=== PATIENT | male | born 1995 | race Caucasian/White ===

== ENCOUNTER 2020-11-14 06:30 | Observation (INO) | payer OTHER, SELFPAY ==
--- NOTE | ~2020-11-14 | XR_ITS ---
EXAMINATION: XR abdomen obstructive series DATE: 11/15/2020 08:55 INDICATION: Small bowel obstruction TECHNIQUE: Upright and supine views of the abdomen were obtained. COMPARISON: None. FINDINGS: No free intraperitoneal gas is identified. The nasogastric tube is in the stomach. There ar e mildly dilated loops of small bowel in the midabdomen. Gas and stool are present in the colon. The visualized lung bases are clear. The osseous structures are unremarkable. IMPRESSION: 1. Mildly dilated small bowel in the midabdomen. Reviewed, dictated and finalized at location A. SORTER
--- NOTE | ~2020-11-14 | NM_ITS ---
EXAMINATION: NM Meckel's DATE: 11/14/2020 15:32 INDICATION: Small bowel obstruction with small bowel diverticulum suspicious for Meckel's diverticulu m. TECHNIQUE: 14.8 mCi Tc 99m pertechnetate administered intravenously. Scintigraphic images of the abd omen were 1 minute intervals through 1 hour with additional delayed 1 hour, 1 hour and 15 minute and 17 hour images. FINDINGS: There is focus of increased activity in the right upper quadrant. This is located in the region of th e previously noted diverticulum which is also alongside the lower pole of the right kidney. There davis s appear to be some excreted activity at the kidneys and more prominently in the bladder. The activit y however is asymmetric, significantly greater on the right which is more prominent on the 1 hour del ayed images. There is no evident asymmetric hydronephrosis on the prior CT images performed earlier i n the day at outside to suggest hydronephrosis in etiology for the asymmetry. IMPRESSION: 1. Focus of increased uptake in the right upper quadrant suspicious for ectopic gastric mucosa the s ite of the previous noted small bowel likely Meckel's diverticulum. Specificity is decreased by the l ocation along side the kidney and could not exclude asymmetric renal uptake although there are no fin dings on the prior CT to account for the asymmetry. Reviewed, dictated and finalized at location A. ATION PROGRAM MANAGER IMPRESSION: 1. Focus of increased uptake in the right upper quadrant suspicious for ectopi c gastric mucosa the site of the previous noted small bowel likely Meckel's div erticulum. Specificity is decreased by the location along side the kidney and c ould not exclude asymmetric renal uptake although there are no findings on the prior CT to account for the asymmetry.
--- NOTE | ~2020-11-14 | XR_ITS ---
EXAMINATION: XR abdomen NG/feed tube rechec INDICATION: Nasogastric tube placement TECHNIQUE: Portable AP KUB-NG at 1903 hours COMPARISON: 0507 hours FINDINGS: The nasogastric tube is in the stomach. The lung bases are clear. No free intraperitoneal g as is identified. IMPRESSION: 1. Nasogastric tube in the stomach. Reviewed, dictated and finalized at location A. D CAPTAIN
--- NOTE | 2020-11-14 06:30 | ADMGEN ---
This patient, Romie Shay, was admitted to Medical Room 348-01. Patient/family oriented to hospital policies and general routines including ID bracelet, bed and alarms, visiting hours, pain management, procedures, bathroom and other care routines, personal items, smoking policy, room service/diet, and visiting hours. Information on how to activate the Rapid Response Team has been discussed. Patient/Family are encouraged to report perceived risks to care and to ask questions if they do not understand what they are told or what they should do.
[2020-11-14 06:48] VITALS: BMI 29.0
[2020-11-14 06:51] VITALS: BP 143/79; PULSE 81; RESP 17; TEMP 36.2; O2SAT 97
[2020-11-14] MEDS: SODIUM CHLORIDE 0.9% IV 1,000 ML 125 ML IV CONT ×2 (08:02→17:37)
[2020-11-14] MEDS: BENZOCAINE/MENTHOL (*BKC) 18 EA LOZENGE 1 LOZENGE PO (08:02)
[2020-11-14 08:45] LABS: Estimated CRCL calculation 121 ml/min; Estimated Glomerular Filt Rate > 60
[2020-11-14 10:00] VITALS: BP 133/81; PULSE 66; RESP 16; TEMP 36.1; O2SAT 99
[2020-11-14] MEDS: PHENOL/SOD PHENO SPRAY CHERRY (*BKC) 1 SPRAY MUCOUS MEM (12:39)
--- NOTE | 2020-11-14 13:47 | PM.IMHP ---
H&P: HPI History of Present Illness Date/Time: 11/14/20 09:47 Chief Complaint: Lower abdominal pain Narrative: Romie Shay is a 25 year old male who presented to the ER at [facility] in [place] yesterday with complaints of lower abdominal pain. He reports having a sudden onset of, initially, mild lower abdominal pain yesterday evening around 6:00 pm after eating dinner. The patient continued to worsen and had no alleviating factors, therefore he presented to the ER. He denies any nausea, vomiting, bloating, fever, or chills prior to ER presentation. He does report one episode of vomiting in the ER at [place], that he felt was related to the severe pain. CT scan of the abdomen and pelvis in the ER showed a small bowel obstruction with a focal diverticular outpouching of dilated small bowel just proximal to the transition point, measuring 2.2 x 2 cm. Findings highly suspicious for Meckel's diverticulum and may represent etiology of the small bowel obstruction. Labs revealed a white blood cell count of 15,900, hemoglobin 16.7, hematocrit 48.1, platelets 215,000, lactic acid 1.1, alk phos 142, AST 80, ALT 180, glucose 111, and other labs were unremarkable. An NG tube was placed and our service was consulted by that ER provider for the CT findings mentioned above. The patient has now been directly admitted to [facility] to our service. He is being seen on the medical floor. He reportedly had about 250 cc out of his NG tube in the ER. The patient denies any flatus and his last bowel movement was 2 days ago, but normal for him. Denies any history of a small bowel obstruction or known Meckel's diverticulum. No history of abdominal surgeries. Reports his abdominal pain has improved significantly and is now barely evident at rest. He is still slightly tender but states that this has improved significantly as well. He also complains of pain in his throat from the NG tube, but no other complaints at this time. Review of Systems Constitutional: Constitutional: Reports as per HPI, Denies chills, Denies fatigue, Denies fever(s) and Denies headache(s) Eyes: Eyes: Reports no additional eye complaints, Denies change in vision, Denies diplopia and Denies loss of vision ENT: Reports system reviewed and no additional complaints, except as documented, Reports Normal hearing present, Denies dizziness, Denies headache(s) and Reports other (throat pain from NG) Cardiovascular: Cardiovascular: Reports no additional cardiovascular complaints, Denies chest pain, Denies syncope, Denies leg edema, Denies lightheadedness, Denies radiating jaw, neck or arm pain and Denies dyspnea Respiratory: Respiratory: Reports no additional respiratory complaints, Denies cough, Denies dyspnea and Denies wheezing Gastrointestinal: Gastrointestinal: Reports as per HPI, Reports no additional gastrointestinal complaints, Reports abdominal pain (mid lower abd pain), Denies melena, Denies bloating, Denies hematochezia, Denies change in bowel habits, Denies dysphagia, Denies diarrhea, Denies nausea, Reports vomiting (x 1) and Denies hematemesis Genitourinary: Genitourinary: Reports no additional male genitourinary complaints, Denies hematuria and Denies dysuria Musculoskeletal: Musculoskeletal: Reports no additional musculoskeletal complaints, Denies deformity, Denies joint swelling, Denies radiating pain into limb and Denies tingling Integumentary/Breasts: Skin/Breast: Denies pruritus, Denies lesions, Denies erythema, Denies wounds and Denies jaundice Neurologic: Reports system reviewed and no additional complaints, except as documented, Reports Normal hearing present, Denies dizziness, Denies syncope, Denies headache(s), Denies loss of vision, Denies tingling and Denies tremor(s) Psychiatric: Psychiatric: Denies anxiety and Denies depression Endocrine: Endocrine: Denies fatigue PMFSH Past Medical History Medical History No pe
[2020-11-14 16:00] VITALS: BP 135/80; PULSE 62; RESP 16; TEMP 36.4; O2SAT 99
[2020-11-14] MEDS: ACETAMINOPHEN 325 MG TABLET 650 MG PO (17:37)
[2020-11-14 18:00] VITALS: BP 136/71; PULSE 68; RESP 16; TEMP 36.2; O2SAT 97
[2020-11-14 20:00] VITALS: BP 143/88; PULSE 68; RESP 20; TEMP 36.3; O2SAT 98
[2020-11-14] MEDS: MORPHINE SULFATE (*CRX) 2 MG/ML INJ IV PUSH (20:37)
[2020-11-15] VITALS: BP 138/82; PULSE 75; RESP 18; TEMP 36.6; O2SAT 99
[2020-11-15] MEDS: SODIUM CHLORIDE 0.9% IV 1,000 ML 125 ML IV CONT ×2 (02:07→15:25)
[2020-11-15 06:10] LABS: Basophils Percent Auto 0.3 % (0.2-1.2); Eosinophils Absolute Auto 0.2 K/mm3 (0-0.3); Eosinophils Percent Auto 1.6 % (0-4.4); Hematocrit 43.7 % (42.0-52.0); Hemoglobin 14.6 g/dL (14.0-18.0); Immature Granulocyte Absolute 0.03 K/mm3 (0.00-0.031); Immature Granulocyte Percent A 0.3 % (0-0.5); Lymphocytes Percent Auto 20.7 % (18.3-44.2); Mean Corpuscular HGB Conc 33.4 g/dl (32-36); Mean Corpuscular Hemoglobin 30.2 pg (26-34); Mean Corpuscular Volume 90.3 fl (80-100); Monocytes Absolute Auto 1.1 K/mm3 (0.1-0.6); Monocytes Percent Auto 11.2 % (2.6-8.5); Neutrophils Absolute Auto 6.7 K/mm3 (1.3-6.7); Neutrophils Percent Auto 65.9 % (45.5-73.1); Platelet Count Result 173 k/mm3 (150-375); Red Blood Count 4.84 M/mm3 (4.6-6.20); Red Cell Distribution Width 11.9 % (11.5-14.5); White Blood Count 10.2 K/mm3 (4.5-10.0)
[2020-11-15 06:24] LABS: Alanine Aminotransferase 123 U/L (4-50); Albumin Level 4.2 g/dL (3.5-5.1); Alkaline Phosphatase 108 U/L (38-126); Anion Gap 7 mmol/L (8-16); Aspartate Amino Transferase 60 U/L (17-59); Bilirubin,Total 1.4 mg/dL (0.2-1.3); Blood Urea Nitrogen 9 mg/dL (9-20); Calcium 9.3 mg/dL (8.4-10.2); Carbon Dioxide 31 mmol/L (22-30); Chloride 99 mmol/L (98-107); Estimated CRCL calculation 100 ml/min; Estimated Glomerular Filt Rate > 60; Glucose 108 mg/dL (75-110); Magnesium 2.3 mg/dL (1.6-2.3); Potassium 4.1 mmol/L (3.4-5.0); Sodium 137 mmol/L (137-145)
[2020-11-15 06:40] VITALS: BP 140/82; PULSE 78; RESP 18; TEMP 36.4; O2SAT 99
[2020-11-15 08:00] VITALS: BP 137/84; PULSE 77; RESP 16; TEMP 36; O2SAT 98
--- NOTE | 2020-11-15 11:47 | PM.PNGS ---
Progress Note: A&P Assessment and Plan (1) Small bowel obstruction: Code(s): K56.609 - Unspecified intestinal obstruction, unspecified as to partial versus complete obstruction Status: Acute Assessment and Plan: SBO thought to possibly be secondary to Meckel's diverticulitis. Nuc med Meckel's scan done yesterday and showed focus of increased uptake in the right upper quadrant suspicious for ectopic gastric mucosa the site of the previous noted small bowel likely Meckel's diverticulum. Specificity is decreased by the location along side the kidney and could not exclude asymmetric renal uptake although there are no findings on the prior CT to account for the asymmetry. After speaking with the Radiologist, they are planning to get imaging again today (when the dye from the kidneys should have cleared) and see if there is still uptake in this area, more likely then from a Meckel's diverticulum. If this appears to be a Meckel's diverticulum, then we will further discuss proceeding with surgical resection. If this does not show uptake in that area, then we will treat this more conservatively as a diverticulitis with antibiotics, and slowly start advancing his diet with resolution of the bowel obstruction. Will await results to decipher further plan. (2) Meckel's diverticulum: Code(s): Q43.0 - Meckel's diverticulum (displaced) (hypertrophic) Status: Acute Assessment and Plan: Possible Meckel's diverticulitis. See plan above. (3) Leukocytosis: Code(s): D72.829 - Elevated white blood cell count, unspecified Status: Acute Assessment and Plan: WBC count down to 10,000 today. Thought to be related to Meckel's diverticulitis, continue IV abx and monitor labs. Additional Plan Discussed the patient's plan of care with Dr. Askew. Subjective Subjective Date/Time Seen: 11/15/20 09:47 Patient reports: no new complaints, flatus and no bowel movement Interval history: Patient seen this morning with Dr. Askew. He denies any abdominal pain, nausea, or significant bloating. Reports flatus, but no BM. Still complains of the discomfort of the NG tube. NO other complaints at this time. He did have an incident where the NG was slightly removed overnight. The nurse advanced it back to the area where it was previously marked by his naris and repeated an x-ray of the abdomen. This is now in good place. He has since had a little over 1.5 L out of the NG tube since that NG was re-advanced. Review of Systems Review of Systems: All systems reviewed & are unremarkable except as noted in HPI and below Constitutional: Constitutional: Reports as per HPI, Denies chills and Denies fever(s) Exam Const: General: no acute distress, alert and awake Orientation/consciousness: patient oriented x3 Resp: Effort & Inspection: normal respiratory effort Auscultation: clear to auscultation bilaterally Cardio: Rate: regular rate Rhythm: regular rhythm GI: Inspection: normal to inspection and non-distended GI Palp: Yes Soft to palpation, No Tenderness to palpation present (GI), No Guarding due to palpation present (GI) and No Rebound tenderness present Auscultation: normal bowel sounds Skin: General skin exam: normal color Neuro: General: moves all extremities and no focal motor deficits Cranial nerves: Yes Equal, round and reactive pupils present Extrem: General: normal to inspection and no clubbing, cyanosis or edema Psych: Appearance: grossly normal Mental Status: mental status grossly normal Speech and movement: Normal speech and movement present Insight: Good insight present (Psych) Judgement: Good judgement present (Psych) Objective Data Vital Signs Vital Signs: Vital Signs - 24 hr 11/14/20 16:00 11/14/20 18:00 11/14/20 20:00 Temperature 97.5 F L 97.1 F L 97.3 F L Pulse Rate 62 68 68 Respiratory Rate 16 16 20 Blood Pressure 135/80 136/71 143/88 H Pulse Oximetry 99 97 98 11/15/20 00:00 11/15/20 06:4
[2020-11-15 12:00] VITALS: BP 138/86; PULSE 86; RESP 18; TEMP 36.3; O2SAT 98
[2020-11-15] MEDS: PHENOL/SOD PHENO SPRAY CHERRY (*BKC) 1 SPRAY MUCOUS MEM (12:36)
[2020-11-15 16:00] VITALS: BP 141/82; PULSE 98; RESP 16; TEMP 36.6; O2SAT 99
== END 2020-11-15 18:40 | disposition home or self-care (01) ==
PROVIDERS: Admitting Provider Surgery; Visit Provider Surgery
DX: K56.609 Unspecified intestinal obstruction, unspecified as to partial versus complete obstruction (principal); D72.829 Elevated white blood cell count, unspecified
CPT/HCPCS: 36415; 74018; 74019; 78290; 80053; 82565; 83605; 83735; 85025; 96361; 96365; 96375; A9270; A9512; G0378; G0379; J2270; J2543; J7030

== ENCOUNTER 2021-11-27 13:14 | Outpatient (CLI) | payer BC, SELFPAY ==
[2021-11-27 11:47] LABS: Basophils Percent Auto 0.5 % (0.2-1.2); Eosinophils Absolute Auto 0.1 K/mm3 (0-0.3); Eosinophils Percent Auto 0.9 % (0-4.4); Hematocrit 45.1 % (42.0-52.0); Hemoglobin 15.4 g/dL (14.0-18.0); Immature Granulocyte Absolute 0.01 K/mm3 (0.00-0.031); Immature Granulocyte Percent A 0.2 % (0-0.5); Lymphocytes Absolute Auto 2.35 K/mm3 (0.9-3.2); Mean Corpuscular HGB Conc 34.1 g/dl (32-36); Mean Corpuscular Hemoglobin 30.6 pg (26-34); Mean Corpuscular Volume 89.7 fl (80-100); Mean Platelet Volume 12.1 fl (7.4-10.4); Monocytes Absolute Auto 0.6 K/mm3 (0.1-0.6); Monocytes Percent Auto 10.9 % (2.6-8.5); Neutrophils Absolute Auto 2.6 K/mm3 (1.3-6.7); Neutrophils Percent Auto 45.5 % (45.5-73.1); Platelet Count Result 206 k/mm3 (150-375); Red Blood Count 5.03 M/mm3 (4.6-6.20); Red Cell Distribution Width 11.7 % (11.5-14.5); White Blood Count 5.6 K/mm3 (4.5-10.0)
[2021-11-27 11:56] LABS: Add Urine Microscopic? YES; Appearance Urine Cloudy (Clear); Bilirubin Urine Negative (Negative); Blood Urine Negative (Negative); Color Urine Yellow (Yellow); Glucose Urine UA Negative (Negative); Ketones Urine Negative (Negative); Leukocyte Esterase Ur Negative LEU/UL (Negative); Mucus Urine Few /lpf; Nitrate Urine Negative (Negative); Protein Urine Negative (Negative); RBC Urine 0-2 /hpf (0-2); Specific Grav Ur 1.016 (1.001-1.035); Squamous Epithelial Cell Urine Rare /hpf (Few); Urobilinogen Urine Negative mg/dL (<2.0); WBC Urine 0-3 /hpf
[2021-11-27 12:00] LABS: Alanine Aminotransferase 73 U/L (4-50); Alkaline Phosphatase 112 U/L (38-126); Anion Gap 8 mmol/L (8-16); Aspartate Amino Transferase 43 U/L (17-59); Bilirubin,Total 0.9 mg/dL (0.2-1.3); Blood Urea Nitrogen 7 mg/dL (9-20); Calcium 9.6 mg/dL (8.4-10.2); Carbon Dioxide 29 mmol/L (22-30); Chloride 101 mmol/L (98-107); Estimated Glomerular Filt Rate > 60; Glucose 98 mg/dL (65-110); Lipase 71 U/L (23-300); Potassium 4.2 mmol/L (3.4-5.0); Sodium 138 mmol/L (137-145)
[2021-11-27 14:03] LABS: IFOB Positive Control Positive; Immunochemical Fecal Occult Bl Negative (N)
== END 2021-11-27 13:15 | disposition home or self-care (01) ==
PROVIDERS: PCP Family Medicine; Visit Provider Surgery
DX: R10.12 Left upper quadrant pain (principal); Z87.442 Personal history of urinary calculi
CPT/HCPCS: 36415; 80053; 81001; 82274; 83690; 85025

== ENCOUNTER 2021-12-10 17:40 | Outpatient (CLI) | payer BC, SELFPAY ==
[2021-12-16 18:46] LABS: H pylori Ag Stool Not Detected (Not Detected)
== END 2021-12-10 17:41 | disposition home or self-care (01) ==
LOC: ANHLAB 17:42
PROVIDERS: PCP Family Medicine; Visit Provider Surgery
DX: K59.00 Constipation, unspecified (principal)
CPT/HCPCS: 87338

== ENCOUNTER 2023-05-02 21:38 | Observation (INO) | payer BC, SELFPAY ==
--- NOTE | ~2023-05-02 | CT_ITS ---
EXAMINATION: CT abdomen pelvis w con DATE: 05/02/2023 22:34 INDICATION: Small bowel obstruction TECHNIQUE: Computed tomography (CT) of the abdomen and pelvis was performed with 100 CC Omnipaque 350 intravenous contrast. Automated exposure control and iterative reconstruction technique were employe d. Exam dose: 699.51 mGy-cm total exam DLP. COMPARISON: 11/15/2020 KUB FINDINGS: Minimal bibasal lateral dependent lower lobe atelectasis. Normal heart size. No pericardial or pleural effusion. The liver, gallbladder, bile ducts, spleen, pancreas, pancreatic duct, and adrenal glands and kidneys appear normal. No urinary tract calculus or hydroureteronephrosis is evident. The urinary bladder is unremarkable. Mild prostate enlargement and calcification. Normal caliber of the abdominal aorta. No intraperitoneal or retroperitoneal or pelvic mass lesion or adenopathy or ascites. Normal appendix. There is a small amount of free fluid in the dependent lower pelvis. Distended small bowel air-fluid levels. There is fecal-like content in the small bowel leading up to the transition point in the lower mid abdomen. Included skeletal structures are unremarkable. IMPRESSION: Distal small bowel obstruction Reviewed, dictated and finalized at Location A. Reviewed, dictated and finalized at location A.
[2023-05-02 21:39] VITALS: BP 129/88; PULSE 75; RESP 20; TEMP 36.6; O2SAT 99
--- NOTE | 2023-05-02 21:53 | ED.ABDPAIN ---
HPI - Abdominal Pain General Chief Complaint: Abdominal Pain Stated Complaint: abd pain, N/V Time Seen by Provider: 05/02/23 21:47 History of Present Illness HPI narrative: Patient with history of SBO, possibly from Meckel diverticulum diagnosed here 2 years ago, presents with pain to the epigastric abdomen that started after lunch, with nausea and vomiting. He did have normal bowel movement this morning, he states that overall the pain seems similar to when he had the SBO however it is epigastric this time is that of lower abdomen, and he has also been having normal bowel movements. Related Data Home Medications Medication Instructions Recorded Confirmed polyethylene glycol 3350 17 17 g PO DAILY 11/27/21 12/13/21 gram/dose oral powder (Miralax) Allergies Allergy/AdvReac Type Severity Reaction Status Date / Time No Known Allergies Allergy Mild Verified 12/10/21 08:47 Review of Systems Review of Systems: CONST: No fever. HEENT: No sore throat C/V: No chest pain RESP: No cough GI: Nausea, vomiting, abdominal pain : No dysuria. M/S: No joint pain. SKIN: No rash. NEURO: [No headache or focal numbness or weakness] PSYCH: [No depression] [facility] Past Medical History Medical History Kidney stones Surgical History Surgical History H/O nephrolithotomy with removal of calculi Hx of tonsillectomy Family History Family History Other Unknown family medical history Social History Social History Social History: The patient lives at home with his girlfriend. He wishes to be a full code. Lifetime non-smoker. Reports alcohol use about 4 drinks per week. Denies illicit drug use. 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 EYES: EOMI, conjunctiva normal ENT: Hearing grossly intact LUNGS: Nonlabored breathing. HEART: [Regular rate and rhythm] ABD: [Soft], very minimally [tender to palpation] epigastric abdomen EXT: Normal range of motion SKIN: [No rashes or lesions.] NEURO: [Alert and oriented x 3. No gross focal sensory or strength deficits.] PSYCH: Normal affect Course Vital Signs Vital signs: Vital Signs Temperature 98 F 05/02/23 21:39 Pulse Rate 75 05/02/23 21:39 Respiratory Rate 20 05/02/23 21:39 Blood Pressure 129/88 05/02/23 21:39 Pulse Oximetry 99 05/02/23 21:39 Oxygen Delivery Room Air 05/02/23 21:39 Temperature 98 F 05/02/23 21:39 Pulse Rate 75 05/02/23 21:39 Respiratory Rate 20 05/02/23 21:39 Blood Pressure 129/88 05/02/23 21:39 Pulse Oximetry 99 05/02/23 21:39 Oxygen Delivery Room Air 05/02/23 21:39 MDM - Abdominal Pain MDM Narrative Medical decision making narrative: Electronic medical record was reviewed. Patient presented to the ED with complaint of [abdominal pain and vomiting]. Vitals [were within acceptable limits]. Physical exam revealed soft abdomen with some mild tenderness to the epigastric abdomen he does have a history of. SBO with Meckel's diverticulum, I did review EMR including his last admission 3 years ago for the same sort of symptoms, as well as the multiple clinic notes, where the diagnosis was inconclusive and he ultimately did not need surgery as he did not have recurrence of symptoms. Based on the patient's history and p
[2023-05-02] MEDS: ONDANSETRON INJ 4 MG/2 ML VIAL IV PUSH (21:58)
[2023-05-02 22:02] VITALS: PULSE 62; RESP 22; O2SAT 98
[2023-05-02 22:02] LABS: Basophils Absolute Auto 0.1 K/mm3 (0.0-0.1); Basophils Percent Auto 0.4 % (0.2-1.2); Eosinophils Absolute Auto 0.1 K/mm3 (0-0.3); Eosinophils Percent Auto 0.5 % (0-4.4); Hemoglobin 15.8 g/dL (14.0-18.0); Immature Granulocyte Absolute 0.03 K/mm3 (0.00-0.031); Immature Granulocyte Percent A 0.2 % (0-0.5); Lymphocytes Absolute Auto 2.14 K/mm3 (0.9-3.2); Lymphocytes Percent Auto 16.6 % (18.3-44.2); Mean Corpuscular HGB Conc 33.6 g/dl (32-36); Mean Corpuscular Hemoglobin 30.7 pg (26-34); Mean Corpuscular Volume 91.4 fl (80-100); Mean Platelet Volume 11.8 fl (7.4-10.4); Monocytes Absolute Auto 1.1 K/mm3 (0.1-0.6); Monocytes Percent Auto 8.8 % (2.6-8.5); Neutrophils Absolute Auto 9.5 K/mm3 (1.3-6.7); Neutrophils Percent Auto 73.5 % (45.5-73.1); Platelet Count Result 192 k/mm3 (150-375); Red Blood Count 5.14 M/mm3 (4.6-6.20); Red Cell Distribution Width 12.2 % (11.5-14.5); White Blood Count 12.9 K/mm3 (4.5-10.0)
[2023-05-02] MEDS: PANTOPRAZOLE SODIUM IV 40 MG VIAL IV PUSH (22:10)
[2023-05-02] MEDS: LACTATED RINGERS 1,000 ML 999 ML IV CONT (22:10)
[2023-05-02] MEDS: MORPHINE SULFATE (*CRX) 4 MG/ML INJ IV PUSH (22:10)
[2023-05-02 22:14] LABS: Lactic Acid Reflex 1.1 mmol/L (0.7-2.0)
[2023-05-02 22:15] LABS: Alanine Aminotransferase 62 U/L (6-50); Albumin Level 5.1 g/dL (3.5-5.1); Alkaline Phosphatase 115 U/L (38-126); Anion Gap 6 mmol/L (8-16); Aspartate Amino Transferase 50 U/L (17-59); Bilirubin,Total 1.1 mg/dL (0.2-1.3); Blood Urea Nitrogen 11 mg/dL (9-20); Calcium 9.5 mg/dL (8.4-10.2); Carbon Dioxide 31 mmol/L (22-30); Chloride 102 mmol/L (98-107); Estimated CRCL calculation 97 ml/min; Estimated Glomerular Filt Rate > 60; Glucose 118 mg/dL (65-110); Lipase 75 U/L (23-300); Potassium 4.2 mmol/L (3.4-5.0); Sodium 139 mmol/L (137-145)
[2023-05-02 22:33] VITALS: PULSE 63; RESP 19; O2SAT 98
[2023-05-02 23:10] VITALS: PULSE 64; RESP 17; O2SAT 100
[2023-05-02 23:31] VITALS: PULSE 61; RESP 23; O2SAT 99
[2023-05-02 23:48] VITALS: PULSE 61; RESP 20; O2SAT 99
[2023-05-02] MEDS: LACTATED RINGERS 1,000 ML 150 ML IV CONT (23:55)
[2023-05-03 00:16] VITALS: PULSE 59; RESP 20; O2SAT 97
[2023-05-03 00:28] VITALS: PULSE 62; RESP 19; O2SAT 97
[2023-05-03 00:45] VITALS: BP 143/77; PULSE 66; RESP 16; TEMP 36.4; O2SAT 100
[2023-05-03 00:54] VITALS: BMI 29.4
[2023-05-03] MEDS: HYDROmorphone HCL INJ (*CRX) 1 MG/ML SYR 0.5 MG IV PUSH (03:22)
[2023-05-03 06:00] VITALS: BP 111/76; PULSE 65; RESP 14; TEMP 36.3; O2SAT 99
--- NOTE | 2023-05-03 06:43 | ADMGEN ---
This patient, Romie Shay, was admitted to 3 Med Surg Room 302-01 at 0045. Patient/family oriented to hospital policies and general routines including ID bracelet, bed and alarms, visiting hours, pain management, procedures, bathroom and other care routines, personal items, smoking policy, room service/diet, and visiting hours. Information on how to activate the Rapid Response Team has been discussed. Patient/Family are encouraged to report perceived risks to care and to ask questions if they do not understand what they are told or what they should do.
[2023-05-03 08:12] VITALS: O2SAT 94
--- NOTE | 2023-05-03 11:33 | PM.SD2 ---
Same Day Admit/Disch: HPI History of Present Illness Chief complaint: sbo w/ meckels Narrative: Romie Shay is a 28 year old male presenting to the emergency department complaining of crampy abdominal pain, nausea and vomiting. Workup in the emergency department, including CT scan, was significant for small bowel obstruction. The patient a similar episode in October of this year. Workup at that time, including imaging, was suggestive of Meckel's diverticulum. The patient has since been admitted to the surgical service and reports that all symptoms are largely resolved at this time. The patient reports that the symptoms have been going on for the last day or so. The patient reports normal bowel movement yesterday morning and again today. PMFSH Past Medical History Medical History Kidney stones Surgical History Surgical History H/O nephrolithotomy with removal of calculi Hx of tonsillectomy Family History Family History Other Unknown family medical history Social History Social History Social History: The patient lives at home with his girlfriend. He wishes to be a full code. Lifetime non-smoker. Reports alcohol use about 4 drinks per week. Denies illicit drug use. 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 Gender identity (if verbalized by the patient): Male Spiritual care concerns: No Same Day Admit/Disch: Med Pre-admit Medications Home Medications Medication Instructions Recorded Confirmed Type polyethylene glycol 3350 17 17 g PO DAILY PRN Constipation 11/27/21 05/03/23 History gram/dose oral powder (Miralax) docusate sodium 100 mg capsule 100 mg PO DAILY PRN Constipation 05/03/23 05/03/23 History (Colace) Exam Const: General: cooperative, comfortable and no acute distress HENMT: Head: normal to inspection, normocephalic and atraumatic Eyes: General: appearance normal, both eyes and all related structures Neck: Neck: normal visual inspection, full ROM and no lymphadenopathy Resp: Auscultation: clear to auscultation bilaterally Cardio: Rate: regular rate Rhythm: regular rhythm GI: Inspection: normal to inspection and non-distended GI Palp: No abdominal tenderness, Yes Soft to palpation, No Tenderness to palpation present (GI), No Guarding due to palpation present (GI) and No Rigid due to palpation Skin: General skin exam: normal color and no rashes or lesions noted Neuro: General: patient oriented x3 and CN's II-XI intact bilaterally Extrem: General: normal to inspection and full ROM Psych: Appearance: grossly normal DS: Data Data Completed and Pending Labs on day of discharge: Labs from last 24 hours 05/02/23 05/02/23 21:55 21:54 WBC 12.9 H RBC 5.14 Hgb 15.8 Hct 47.0 MCV 91.4 MCH 30.7 MCHC 33.6 RDW 12.2 Plt Count 192 MPV 11.8 H Immature Gran % (Auto) 0.2 Neut % (Auto) 73.5 H Lymph % (Auto) 16.6 L Price % (Auto) 8.8 H Eos % (Auto) 0.5 Baso % (Auto) 0.4 Lymph # (Auto) 2.14 Price # (Auto) 1.1 H Eos # (Auto) 0.1 Baso # (Auto) 0.1 Abs Immat Gran (auto) 0.03 Absolute Neuts (auto) 9.5 H Absolute Nucleated RBC 0.0 Nucleated RBC % 0.0 Sodium
== END 2023-05-03 13:40 | disposition home or self-care (01) ==
LOC: ANHED 05-03 00:01 → ANH3MEDSUR 05-03 07:12
PROVIDERS: Admitting Provider Surgery; Emergency Provider Emergency Medicine; PCP Family Medicine; Visit Provider Surgery
DX: K56.609 Unspecified intestinal obstruction, unspecified as to partial versus complete obstruction (principal); Q43.0 Meckel's diverticulum (displaced) (hypertrophic); Z79.899 Other long term (current) drug therapy; F10.90 Alcohol use, unspecified, uncomplicated
CPT/HCPCS: 36415; 74177; 80053; 83605; 83690; 85025; 96361; 96374; 96375; 99285; C9113; G0378; J1170; J2270; J2405; J7120; Q9967

== ENCOUNTER 2023-05-22 13:55 | Outpatient (CLI) | payer BC, SELFPAY ==
--- NOTE | 2023-05-22 14:47 | ECG_ITS ---
Measurements Intervals [place] Rate: 56 P: 44 FL: 173 QRS: 39 QRSD: 85 T: 23 QT: 402 QTc: 390 Interpretive Statements SINUS BRADYCARDIA BASELINE ARTIFACT- I, II, AVR BORDERLINE ECG NO PREVIOUS ECG AVAILABLE FOR COMPARISON Electronically Signed On 05-22-2023 16:12:55 CDT by Pb Ramos D.O.
[2023-05-22 15:27] LABS: White Blood Count 6.7 K/mm3 (4.5-10.0)
== END 2023-05-22 13:56 | disposition home or self-care (01) ==
LOC: ANHSURGERY 14:00
PROVIDERS: Anesthesiology; PCP Family Medicine; Visit Provider Surgery
DX: Q43.0 Meckel's diverticulum (displaced) (hypertrophic) (principal); Z01.818 Encounter for other preprocedural examination
CPT/HCPCS: 36415; 85048; 86850; 86900; 86901; 93005

== ENCOUNTER 2023-05-28 17:40 | Inpatient (IN) | payer BC, SELFPAY ==
[2023-05-22 14:08] VITALS: BP 126/66; PULSE 66; RESP 16; TEMP 36.7; O2SAT 98; BMI 28.6
--- NOTE | 2023-05-22 14:24 | PC.NURSE ---
Report to the Outpatient Waiting Room, entrance under the green pavilion located off [facility], at time __12:00PM on date __05/28/23 . Planned Procedure Time: __2:00PM . Time changes happen often and if your time is changed the preop area will call you the afternoon before. - You and your visitor will be asked to self-screen and do not enter if you have any COVID symptoms. - A mask is optional within the hospital at this time. Patients may have clear liquids (water, carbonated beverages, clear teas, apple juice) until 3 hours prior to surgery with a maximum of 20 ounces. - No food from midnight until time of surgery Take the following medications with a SIP of water the morning of surgery: ___NONE DO NOT STOP ANY OF YOUR OTHER PRESCRIPTION MEDICATIONS PRIOR TO SURGERY ?EXCEPT THE FOLLOWING Medications to discontinue per physician NONE Date to take last dose Please no make-up, nail turkish, hairspray, perfume, deodorant, or body powder the day of surgery. No jewelry (including any body piercings) or valuables the day of surgery, leave them at home. Please take a shower or bath the night before, or the morning of, surgery with an antibacterial soap. Wear comfortable, loose fitting clothing. Children are encouraged to wear pajamas. - Jewelry must be removed prior to entering the operating room. Rings and piercings that are not removed may be cut off. - The hospital will not accept responsibility for valuables. - Please leave all valuables, including medications, at home the day of surgery. If you are going home after surgery, a licensed sales driver must drive you home. - NO public transportation without another adult if you receive anesthesia. - We recommend that an adult stay with you for 24 hours following discharge. - We also recommend that you do not drive, make important decision, drink alcoholic beverages, or take any drugs that were not prescribed by your health care provider for at least 24 hours after your discharge time. Follow any additional instructions given to you from your surgeon. If you or anyone in your household have experienced Covid symptoms in the past week, please notify your surgeon or the nurse liaison at the phone number below for possible testing. Telephone instructions given to ___PATIENT and asked if any additional questions and then verbalized understanding. Patient advised to call surgeon office or pre surgery nurse liaison [phone] if any additional questions.
[2023-05-28] VITALS (10 sets, daily range): BP systolic 112–136; BP diastolic 62–93; PULSE 64–88; RESP 15–17; TEMP 36.2–36.8; O2SAT 96–98
--- NOTE | 2023-05-28 11:35 | WPDHPUPDATE1 ---
History and Physical Update Update Date/Time: 05/28/23 11:35 History and Physical has been reviewed, including an updated exam of the patient. There are NO changes in the patient's condition. Risks, benefits, and alternatives have been discussed and questions answered. Patient agrees to proceed with procedure. please note that procedure will be robotic assisted small bowel resection
[2023-05-28] MEDS: ACETAMINOPHEN 500 MG TABLET 1000 MG PO (12:10)
[2023-05-28] MEDS: LACTATED RINGERS 1,000 ML 30 ML IV CONT ×2 (12:28→16:40)
--- NOTE | 2023-05-28 13:14 | WPDANESEPPF ---
Anes - Initial Pre Proc Eval Procedure: Operation Date: 05/28/23 14:00 Proposed Procedures p Robotic Assisted Laparoscopic Small Bowel Resection - Nichole Ferreira MD Date/Time: 05/28/23 13:14 Surgeon: Nichole Ferreira MD Pre Op Diagnosis: Meckels Diverticulum Patient Data Age: 28 Gender: M Height: 1.83 m Weight: 97 kg Last Vital Signs Temp 36.8 C 05/28/23 11:30 Pulse 70 05/28/23 11:30 Resp 16 05/28/23 11:30 BP 128/79 05/28/23 11:30 Pulse Ox 98 05/28/23 11:30 O2 Del Method Room Air 05/28/23 11:30 Allergies Allergy/AdvReac Type Severity Reaction Status Date / Time No Known Allergies Allergy Mild Verified 05/28/23 12:05 Home Medications Medication Instructions Recorded Confirmed Type ciprofloxacin HCl 500 mg tablet See Rx Instructions .Route 05/15/23 05/28/23 Rx .COMPLEX #1 tablet metronidazole 500 mg tablet See Rx Instructions .Route 05/15/23 05/28/23 Rx .COMPLEX #3 tabs Patient hx anesthesia problems: none Family hx anesthesia problems: none Results Review: All pre-operative results and documents have been reviewed as part of the pre-operative evaluation. [facility] Past Medical History Medical History Kidney stones Surgical History Surgical History H/O nephrolithotomy with removal of calculi Hx of tonsillectomy Family History Family History Other Unknown family medical history Social History Social History Social History: The patient lives at home with his girlfriend. He wishes to be a full code. Lifetime non-smoker. Reports alcohol use about 4 drinks per week. Denies illicit drug use. Smoking status: Never smoker Second hand tobacco smoke exposure: No Alcohol intake: current Drinks per week: 10 Substance use: never Substance use type: does not use Lack of Transportation: No Lack of Food: Never True Current Housing: I Have Housing Concerned About Future Housing: No Difficulty Paying Gas/Electric Bills: No Difficulty Paying for Meds: No Currently Unemployed: No Education: Bachelor's Degree Difficulty w/ Childcare or Family Care: No Living arrangements: with family Additional living arrangements comments: Occupation/Education: occupation Additional occupation/education comments: [employer] Gender identity (if verbalized by the patient): Male Spiritual care concerns: No Anes - Eval Final PreProcedure Day of Procedure 05/28/23 13:14 Patient weight: overweight Heart: regular rate and rhythm Lungs: clear to auscultation Airway: Mallampati scale class II Last oral intake: >/= 8 hours ASA classification: II Emergent: no Anesthetic plan: proceed Anesthesia type and monitoring: general ETT and standard monitoring Results Review: All pre-operative results and documents have been reviewed as part of the pre-operative evaluation. Informed Consent: The patient's anesthetic plan and its attendant risks and benefits were discussed with the patient/family/POA. Questions were solicited and answers provided to the satisfaction of the patient/family/POA.
[2023-05-28] MEDS: KETOROLAC 15 MG/ML VIAL (*BKC) IV PUSH (13:32)
[2023-05-28] MEDS: ceFAZolin 2 GM/D5W 50 ML 2 GM/50 ML BAG IVPB (14:02)
[2023-05-28] MEDS: metroNIDAZOLE 500 MG/ISO 100ML 500 MG/100 ML BAG 100 MG IVPB (14:15)
[2023-05-28] MEDS: BUPIVACAINE/EPINEPHRINE 0.5% 10 ML VIAL 30 ML INFILTRATE (14:30)
--- NOTE | 2023-05-28 16:36 | W.PM.PROC2 ---
Procedure Note - Detailed Date of Procedure 05/28/23 Pre-op Diagnosis small bowel diverticulum Post-op Diagnosis Same Procedure Performed robotic assisted small bowel resection with intracorporeal anastomosis Surgeon Nichole Ferreira MD Anesthesia General Indications 28-year-old male presenting with small-bowel diverticulum. The patient is currently asymptomatic, however has had small bowel obstruction requiring admission x2 over the last few months. Long discussion was had with the patient and his family and he wishes to proceed with small bowel resection at the area of the diverticulum. Findings Small diverticulum in the proximal ileum Description of Procedure The patient was taken to the operating room and placed in the supine position. After adequate induction of general anesthesia, the patient was prepped and draped in the normal sterile fashion. A time-out was then done to verify the patient's identity, as well as the procedure being performed. I began by making an 8 mm incision at burrows's point in the left upper quadrant. I then placed a Veress needle through this incision and CO2 gas was insufflated. After adequate pneumoperitoneum was achieved, the Veress needle was removed and an 8 mm Optiview trocar was placed under direct visualization. I then placed the laparoscoped through this trocar site and under direct visualization placed a further 12 mm left upper abdominal port, 8 mm left mid abdominal port, and a 8 mm left lower quadrant abdominal port. An additional 8 mm AirSeal port was placed as the licensed sales assistant port in the left mid abdomen. I began by visualizing the cecum laparoscopically. I then began to run the small bowel proximally from the ileocecal junction. There was noted to be a small diverticulum in the proximal ileum that was noninflamed. Did run the entirety of the small bowel laparoscopically and no other pathology was noted. At this point, the ports were docked to the robot. I then scrubbed out and went to the robotic console to take control of the arms. Again the small intestine was run from the ligament of treves to the ligament of Treitz. The only pathology noted was the small diverticulum in the proximal ileum. Given these findings, I decided to resect this area. First began by finding an area both proximal and distal to the diverticulum as are likely resection margins. I then scored the mesentery in these areas. I then used the vessel sealer device to take down the mesenteric attachments to the small intestine in this area. Once this was achieved, I used ICG, firefly technology to confirm adequate perfusion in both the proximal and distal small intestine to our resection. Once confirmed, I transected the small bowel proximal and distal to the diverticulum. The specimen was then placed in the right upper quadrant. Again firefly was used to confirm perfusion, which was noted to be adequate. I then performed a [id number] functional end-to-end intracorporeal anastomosis with the 60 mm stapler. The common enterotomies was closed with an additional 60 mm staple load. Once our anastomosis was complete, it was noted to be tension-free and widely patent. I proceeded to close the mesenteric defect with a 2-0 silk running suture. I then placed a Endo pouch through the 12 mm port site. The specimen was placed into the Endo pouch and removed through the 12 mm port site. It will now be sent to pathology for further review. A naila cone was placed through the 12 mm port site and under direct visualization I closed the fascia of the 12 mm port site with an 0 Vicryl suture. The robot was then undocked port sites were removed. All port sites were then closed with 4-0 Monocryl subcuticular suture and Dermabond was placed on all wounds. The patient tolerated the procedure well and was extubated postoperatively. He will be transferred to the recovery room in stable condition. Estimated Blood Loss 25 Drains No Packing No Pat
[2023-05-28] MEDS: fentaNYL CITRATE INJ (*CRX) 100 MCG/2 ML VIAL 25 MCG IV PUSH ×5 (17:05→17:17)
--- NOTE | 2023-05-28 18:18 | PC.NURSE ---
This patient, Romie Shay, was admitted to Medical Room 341-01. Patient/family oriented to hospital policies and general routines including ID bracelet, bed and alarms, visiting hours, pain management, procedures, bathroom and other care routines, personal items, smoking policy, room service/diet, and visiting hours. Information on how to activate the Rapid Response Team has been discussed. Patient/Family are encouraged to report perceived risks to care and to ask questions if they do not understand what they are told or what they should do.
[2023-05-28] MEDS: LACTATED RINGERS 1,000 ML 100 ML IV CONT (18:26)
[2023-05-28] MEDS: ceFAZolin 1 GM/NS 50 ML 1 GM/50 ML BAG IVPB (21:46)
[2023-05-29 03:25] VITALS: BP 121/66; PULSE 58; RESP 16; TEMP 36.3; O2SAT 97
[2023-05-29] MEDS: ceFAZolin 1 GM/NS 50 ML 1 GM/50 ML BAG IVPB (05:19)
[2023-05-29] MEDS: HYDROcodone/acetaminophen (*CRX) 5-325 MG TABLET 1 TAB PO ×2 (05:19→09:55)
[2023-05-29] MEDS: LACTATED RINGERS 1,000 ML 100 ML IV CONT (05:21)
[2023-05-29 05:43] LABS: Basophils Percent Auto 0.2 % (0.2-1.2); Eosinophils Percent Auto 0.2 % (0-4.4); Hematocrit 42.7 % (42.0-52.0); Hemoglobin 14.1 g/dL (14.0-18.0); Immature Granulocyte Absolute 0.03 K/mm3 (0.00-0.031); Immature Granulocyte Percent A 0.3 % (0-0.5); Lymphocytes Absolute Auto 2.27 K/mm3 (0.9-3.2); Lymphocytes Percent Auto 19.5 % (18.3-44.2); Mean Corpuscular Hemoglobin 30.9 pg (26-34); Mean Corpuscular Volume 93.4 fl (80-100); Mean Platelet Volume 11.6 fl (7.4-10.4); Monocytes Absolute Auto 1.2 K/mm3 (0.1-0.6); Monocytes Percent Auto 10.1 % (2.6-8.5); Neutrophils Absolute Auto 8.1 K/mm3 (1.3-6.7); Neutrophils Percent Auto 69.7 % (45.5-73.1); Platelet Count Result 179 k/mm3 (150-375); Red Blood Count 4.57 M/mm3 (4.6-6.20); Red Cell Distribution Width 11.9 % (11.5-14.5); White Blood Count 11.6 K/mm3 (4.5-10.0)
[2023-05-29 06:05] LABS: Anion Gap 4 mmol/L (8-16); Blood Urea Nitrogen 11 mg/dL (9-20); Calcium 8.9 mg/dL (8.4-10.2); Carbon Dioxide 31 mmol/L (22-30); Chloride 102 mmol/L (98-107); Estimated CRCL calculation 118 ml/min; Estimated Glomerular Filt Rate > 60; Glucose 104 mg/dL (65-110); Potassium 4.7 mmol/L (3.4-5.0); Sodium 137 mmol/L (137-145)
[2023-05-29] MEDS: PANTOPRAZOLE 40 MG TABLET PO (08:45)
[2023-05-29 09:26] VITALS: BP 128/77; PULSE 64; RESP 18; TEMP 36.4; O2SAT 99
--- NOTE | 2023-05-29 13:24 | P.PNAN_ITS ---
Anes - Prog Note Post-Op Date/Time: 05/29/23 13:24 Cardiovascular status: normal Respiratory status: normal Airway patency: baseline Mental status: baseline Post-Op hydration status: normal Vital Signs: Last Vital Signs Temp 36.4 C L 05/29/23 09:26 Pulse 64 05/29/23 09:26 Resp 18 05/29/23 09:26 BP 128/77 05/29/23 09:26 Pulse Ox 99 05/29/23 09:26 O2 Del Method Room Air 05/29/23 08:30 O2 Flow Rate 6 05/28/23 16:55 Pain Score (VAS): 12/26 I/O: Intake & Output 05/28/23 05/29/23 05/29/23 23:59 07:59 15:59 Intake Total 450 1350 Balance 450 1350 Laboratory Tests 05/29/23 05:28 05/29/23 05:28 05/29/23 05:28 WBC 11.6 H RBC 4.57 L Hgb 14.1 Hct 42.7 MCV 93.4 MCH 30.9 MCHC 33.0 RDW 11.9 Plt Count 179 MPV 11.6 H Immature Gran % (Auto) 0.3 Neut % (Auto) 69.7 Lymph % (Auto) 19.5 [place] % (Auto) 10.1 H Eos % (Auto) 0.2 Baso % (Auto) 0.2 Lymph # (Auto) 2.27 [place] # (Auto) 1.2 H Eos # (Auto) 0.0 Baso # (Auto) 0.0 Abs Immat Gran (auto) 0.03 Absolute Neuts (auto) 8.1 H Absolute Nucleated RBC 0.0 Nucleated RBC % 0.0 Sodium 137 Potassium 4.7 Chloride 102 Carbon Dioxide 31 H Anion Gap 4 L BUN 11 Creatinine 0.90 Estim Creat Clear Calc 118 Estimated GFR > 60 Glucose 104 Calcium 8.9 Post-procedural complaints: none Patient Feedback: Patient satisfied with anesthetic care.
--- NOTE | 2023-05-29 16:14 | PM.DS ---
DS: Admitting Diagnosis Discharge Date 05/29/23 Admitting Diagnosis Small-bowel diverticulum DS: Discharge Diagnosis Discharge Diagnosis (1) Diverticulum of small intestine: Code(s): K57.10 - Diverticulosis of small intestine without perforation or abscess without bleeding Status: Acute Assessment and Plan: status post robotic assisted resection, continue routine postoperative care, home with p.o. analgesia and Colace, follow-up in 2 weeks, path pending DS: Summary Hospital Course Reason for hospitalization: small-bowel diverticulum Hospital Course: The patient is a 28-year-old male presenting with small-bowel diverticulum. The patient has been admitted twice in the last few months with small-bowel obstruction secondary to the diverticulum. The patient was taken to the operating room and robotic assisted small bowel resection was performed, please see full operative report for details of the procedure. Postoperatively, the patient did well was transferred to the surgical floor. He was started on a clear liquid diet which he tolerated without issue. The patient reports his pain is well controlled and he was ambulating without issue. On postoperative day 1., I was able to advance his diet without issue. The patient was able to pass flatus and his abdominal exam was completely benign. He will be sent home with p.o. analgesia and Colace. He will follow up with me in 2 weeks. Status at Discharge Functional status at discharge: independent ambulation Overall status at discharge: patient is progressing back to baseline Time Spent with Patient Time attestation: Total time spent providing and/or coordinating discharge services: Time spent: Less than 30 minutes Exam Const: General: cooperative, comfortable and no acute distress Resp: Auscultation: clear to auscultation bilaterally Cardio: Rate: regular rate Rhythm: regular rhythm GI: Inspection: normal to inspection, distended and incision GI Palp: Yes abdominal tenderness, Yes Soft to palpation, Yes Tenderness to palpation present (GI), No Guarding due to palpation present (GI) and No Rigid due to palpation DS: Data Data Completed and Pending Pending studies at discharge: Pending at discharge 05/28/23 15:53 Surgical [PTH] Routine Labs on day of discharge: Labs from last 24 hours 05/29/23 05:28 WBC 11.6 H RBC 4.57 L Hgb 14.1 Hct 42.7 MCV 93.4 MCH 30.9 MCHC 33.0 RDW 11.9 Plt Count 179 MPV 11.6 H Immature Gran % (Auto) 0.3 Neut % (Auto) 69.7 Lymph % (Auto) 19.5 [place] % (Auto) 10.1 H Eos % (Auto) 0.2 Baso % (Auto) 0.2 Lymph # (Auto) 2.27 [place] # (Auto) 1.2 H Eos # (Auto) 0.0 Baso # (Auto) 0.0 Abs Immat Gran (auto) 0.03 Absolute Neuts (auto) 8.1 H Absolute Nucleated RBC 0.0 Nucleated RBC % 0.0 Sodium 137 Potassium 4.7 Chloride 102 Carbon Dioxide 31 H Anion Gap 4 L BUN 11 Creatinine 0.90 Estim Creat Clear Calc 118 Estimated GFR > 60 Glucose 104 Calcium 8.9 Discharge Plan Discharge Attending physician on discharge: Nichole Ferreira Discharging Clinician: Nichole Ferreira Anticipated Discharge Date/Time: 05/29/23 13:56 Patient Disposition: Home, Self-Care Activity: may shower and no straining Diet: as tolerated Wound Care Instructions: incision open to air Stand Alone Forms: General Discharge Instructions, Work/School Release IP Follow-up/Referrals: Nichole Ferreira MD [Physician] - 2 Weeks Discharge Medications: New hydrocodone-acetaminophen 7.5-325 mg tablet 1 tablet PO Q6H PRN (Reason: pain) Qty: 30 0RF Discontinued ciprofloxacin HCl 500 mg tablet See Rx Instructions .ROUTE .COMPLEX Qty: 1 0RF Rx Instructions: Take 1 tablet my mouth at 2:00 PM the day prior to the procedure.; metronidazole 500 mg tablet See Rx Instructions .ROUTE .COMPLEX Qty: 3 0RF Rx Instructions: Take 1 tablet by mouth at 1:00PM, 2:00PM, and 11:
== END 2023-05-29 14:30 | disposition home or self-care (01) | DRG 331 ==
LOC: ANH3MED 17:48
PROVIDERS: Admitting Provider Surgery; PCP Family Medicine; Visit Provider Surgery
PROC: 0DTF4ZZ Resection of Right Large Intestine, Percutaneous Endoscopic Approach (ICD-10-PCS; principal; 2023-05-28 14:00)
DX: K57.10 Diverticulosis of small intestine without perforation or abscess without bleeding (principal)
CPT/HCPCS: 36415; 80048; 85025; 88307; A9270; J0330; J0690; J1100; J1170; J1836; J1885; J2250; J2405; J2704; J3010; J7030; J7120